=== PATIENT | female | born 1975 | race African-American/Black ===

== ENCOUNTER 2018-10-31 12:54 | Emergency (ER) | payer BC, MEDICARE, MEDICAID ==
[~2018-10-31] VITALS: Ht 165.1 cm; Wt 157.4 kg
[2018-10-31 13:15] VITALS: BP 129/70
--- NOTE | 2018-10-31 13:48 | Emergency Room Report ---
History of Present Illness General Chief Complaint: General Complaint Source: Patient (Didi Rogers DO) Present Illness HPI Patient presents with complaints of tingling and swelling in the right leg Reports that she has swelling in both legs however noticed increased discomfort on the right side Denies any chest pain or shortness of breath denies any recent travel denies any trauma patient has had swelling on a chronic basis however felt that more acutely the right side appears more swollen Denies any low back pain denies any dysuria or frequency (Didi Rogers DO) Allergies: Coded Allergies: No Known Allergies (Unverified , 10/31/18) Patient History Past Medical History: see triage record Pertinent Family History: none Last Menstrual Period: 10/13/18 Now: No Reviewed Nursing Documentation: PMH: Agreed; PSxH: Agreed (Didi Rogers DO) Nursing Documentation-PMH Past Medical History: No Stated History (Didi Rogers DO) Review of Systems All Other Systems: negative except mentioned in HPI (Didi Rogers DO) Physical Exam Vital Signs Date Time Temp Pulse Resp B/P (MAP) Pulse Ox O2 Delivery O2 Flow Rate FiO2 10/31/18 13:03 98.4 85 18 113/72 95 Room Air Sp02 EP Interpretation: reviewed, normal General Appearance: well appearing, no apparent distress Head: normocephalic, atraumatic Eyes: bilateral eye PERRL, bilateral eye EOMI ENT: hearing grossly normal, normal pharynx, TMs + canals normal, uvula midline Neck: full range of motion, supple, no meningismus, no bony tend Respiratory: lungs clear, normal breath sounds, no rhonchi, no respiratory distress, no retraction, no accessory muscle use Cardiovascular #1: normal peripheral pulses, regular rate, rhythm, no gallop, no JVD, no murmur Gastrointestinal: normal bowel sounds, non tender, soft, no mass, no organomegaly, non-distended, no guarding, no hernia, no pulsatile mass, no rebound Genitourinary: no CVA tenderness Musculoskeletal: other - Dependent appearing edema on both lower extremities the right side does appear more swollen compared to left sensory is intact, Neurologic: oriented x3, responsive, wire winder III-XII nml as tested, motor strength/ tone normal, sensory intact Psychiatric: mood/affect normal Skin: warm/dry, other - Swelling depndent bilateral Lymphatic: normal inspection, no adenopathy (Didi Rogers DO) Medical Decision Making ER Course I received signout from Dr. Rogers 43-year-old female with 2 days of leg swelling, also to follow up on lab results as well as DVT study. Vascular study is negative for DVT. Labs are normal. She is stable, walking around, she is ready for discharge home Discharge diagnosis is swelling/edema of legs Disposition: Will be discharged to home with follow-up with PCP, will be given 15 days of furosemide (Meir Senior M.D.) Last Vital Signs Date Time Temp Pulse Resp B/P (MAP) Pulse Ox O2 Delivery O2 Flow Rate FiO2 10/31/18 13:03 98.4 85 18 113/72 95 Room Air (Didi Rogers DO) Scripts Furosemide* (LASIX*) 40 Mg Tablet 20 MG ORAL DAILY, #15 TAB Prov: Didi Rogers DO 10/31/18 Didi Rogers DO Oct 31, 2018 13:48 Meir Senior M.D. Oct 31, 2018 15:53
[2018-10-31 14:00] LABS: BASOPHILS % (AUTO) 1.6 % (0.0-2.0); EOSINOPHILS % (AUTO) 2.1 % (0.0-3.0); HEMATOCRIT 46.7 % (37.0-47.0); HEMOGLOBIN 15.4 G/DL (12.0-16.0); MEAN CORPUSCULAR VOLUME 96 FL (80-99); MONOCYTES % (AUTO) 7.8 % (1.0-10.0); NEUTROPHILS % (AUTO) 60.4 % (45.0-75.0); PLATELET COUNT 300 K/UL (150-450); RED BLOOD COUNT 4.84 M/UL (4.20-5.40); RED CELL DISTRIBUTION WIDTH 11.8 % (11.6-14.8); WHITE BLOOD COUNT 10.2 K/UL (4.8-10.8)
--- NOTE | 2018-10-31 14:05 | NUR ---
ED Nurse Note: pt walked in c/o right leg pain and swelling, pt stated she noticed it one day and has been progressively worsening. noted leg swelling and tenderness on right calf area. CMS intact BLE, cap refill <3sec, no open wound or s/s injury noted, pt denies any injuries, pt ambulates w/ steady gait. will cont monitor.
[2018-10-31] MEDS ORDERED: FUROSEMIDE40 MG ORAL (14:27)
--- NOTE | 2018-10-31 14:55 | NUR ---
ED Nurse Note: Venipunture to the right AC using 23g. Labs collected and sent. Patient tolerated the procedure without difficulty.
[2018-10-31 15:15] LABS: ANION GAP 6 mmol/L (5-15); BLOOD UREA NITROGEN 14 mg/dL (7-18); CALCIUM 8.9 MG/DL (8.5-10.1); CARBON DIOXIDE 27 MMOL/L (21-32); CHLORIDE 105 MMOL/L (98-107); CREATININE 0.9 MG/DL (0.55-1.30); POTASSIUM 4.3 MMOL/L (3.5-5.1); SODIUM 138 MMOL/L (136-145)
--- NOTE | 2018-10-31 15:15 | Diagnostic Imaging Report ---
Indication: Right lower extremity pain and swelling. Technique: Duplex Doppler imaging performed from the right common femoral vein to the popliteal vein. FINDINGS: Normal compressibility demonstrated from the common femoral vein to the popliteal vein. Respiratory phasicity and good augmentation demonstrated on waveform analysis. There is no evidence of thrombosis. IMPRESSION: No evidence of deep venous thrombosis within the right lower extremity.
--- NOTE | 2018-10-31 15:34 | NUR ---
ED Nurse Note: notified ERMD pt' c/o pain
[2018-10-31] MEDS ORDERED: Ketorolac 60mg Inj IM ONE (15:45)
[2018-10-31 15:58] VITALS: BP 140/84
--- NOTE | 2018-10-31 16:00 | NUR ---
ED Nurse Note: Patient is being discharged from medical care. D/C instruction and prescription given to patient. All questions were answered. Patient ambulated out with all her belongings, accompained by family member.
== END 2018-10-31 15:58 | disposition home or self-care (01) ==
LOC: EMR 13:30
DX: R60.0 Localized edema (principal); M79.661 Pain in right lower leg; F17.200 Nicotine dependence, unspecified, uncomplicated
CPT/HCPCS: 36415; 80048; 85025; 93971; 96372; 99284